=== PATIENT | male | born 1950 | race Caucasian/White ===

== ENCOUNTER 2016-10-21 11:25 | Outpatient (CLI) | payer OTHER ==
--- NOTE | 2016-10-21 15:23 | Diagnostic Imaging Report ---
Indication: Altered mental status Technique: sagittal T1 fast spin echo, axial T1 FLAIR, axial T2 FLAIR, axial T2 FS PROPELLER, axial T2* GRE, axial diffusion weighted images. ADC and exponential ADC maps generated Comparison: None Findings:GRE sagittal T1 sequences demonstrate image degradation due to motion artifact. No abnormal areas of restricted diffusion to suggest acute infarction. There is white matter and possibly cortical edema of the right cerebellar hemisphere, which results in mass effect slightly attenuating the ventricle and shifting it to the left. There is less extensive edema in the medial left cerebellar hemisphere. No associated diffusion abnormality. No associated hemorrhage. There is a small focal 5 mm T2 hyperintensity in the posterior medial cerebellar hemisphere, with a thin lower signal rim. There is age-related enlargement of ventricles and extra axial CSF spaces. There is periventricular deep white matter chronic ischemic change. There is somewhat unusual appearance of the deep white matter tracts on the axial T1 and T2-weighted images, with radiating abnormal and low T1 signal intensity. Visualized orbits and sinuses are unremarkable. The vascular flow voids are preserved Impression: Right-sided, less extensive left-sided cerebellar edema, resulting in mass effect, as described. As there is no underlying diffusion signal abnormality or evidence of hemorrhage, this most likely represents vasogenic edema secondary to underlying tumor or inflammatory process. Recommend contrast MRI followup for further evaluation Chronic and age-related changes, as described Negative for acute intracranial bleed or infarct. Unusual appearance to the white matter tracts in the upper convexities, probably represents unusual manifestation of otherwise typical chronic ischemic change or prominent perivascular spaces, significance doubtful
== END 2016-10-21 13:25 | disposition home or self-care (01) ==
LOC: MRI 11:25
DX: R41.82 Altered mental status, unspecified (principal)
CPT/HCPCS: 70551